=== PATIENT | female | born 1970 | race Caucasian/White ===

== ENCOUNTER 2024-10-03 15:44 | Emergency (ER) | payer MEDICAID ==
[~2024-10-03] VITALS: Ht 160 cm; Wt 68.0 kg
[2024-10-03 15:46] VITALS: TEMP 36.7; O2SAT 98
[2024-10-03 17:02] VITALS: BP 135/75; PULSE 98; RESP 22
[2024-10-03] MEDS: ACETAMINOPHEN WITH CODEINE 300/30MG TABLET PO ONE (17:02)
[2024-10-03] MEDS ORDERED: METH-653 MT (17:38)
[2024-10-03] MEDS ORDERED: IBUP-2030 MT (17:38)
== END 2024-10-03 18:21 | disposition home or self-care (01) ==
LOC: ER 15:44
DX: M79.10 Myalgia, unspecified site (principal); M54.6 Pain in thoracic spine
CPT/HCPCS: 93005; 99283